=== PATIENT | male | born 1965 | race Caucasian/White ===

== ENCOUNTER → 2016-10-20 | Outpatient (CLI) | payer BC, OTHER ==
[~2016-10-20] MED LIST: CYCL10TA6 PO
== END | disposition home or self-care (01) ==
LOC: C.RDSM 16:13
PROVIDERS: ATTEND Physical Medicine & Rehabilitation Sports Medicine
DX: M25.521 Pain in right elbow (principal)

== ENCOUNTER → 2016-10-24 | Outpatient (CLI) | payer OTHER, BC ==
--- NOTE | 2016-10-24 08:57 | DIAGNOSTIC IMAGING REPORT ---
RIGHT ELBOW MRI HISTORY: Right elbow pain. RT ELBOW POSSIBLE DISTAL BICEP TEAR Right TECHNIQUE: Multiplanar multisequence MRI of the right elbow was performed without the use of contrast. COMPARISON STUDY: Right elbow 10/18/2016. FINDINGS: There is fluid surrounding the distal biceps tendon. There is minimal increased signal within the distal biceps tendon at the attachment. No evidence for full-thickness tear. Mild edema at the antecubital fossa. The triceps tendon is intact. No significant joint effusion. No fracture or dislocation. Cartilage spaces are maintained for age. The ulnar and radial collateral ligaments appear intact. Common flexor and common extensor tendons are normal in course, caliber, and signal intensity. The ulnar nerve is within normal limits. IMPRESSION: 1. Edema surrounding the distal biceps tendon. There is also minimal increased signal within the distal biceps tendon near the attachment suggestive of a low-grade partial tear/tendinopathy. No evidence for full-thickness tear. 2. No fracture or dislocation within the elbow. Electronically signed by: Lucas Gar M.D. 10/24/2016 8:56 AM Dictated Date/Time: 10/24/2016 8:50 AM
== END | disposition home or self-care (01) ==
LOC: C.MRI 07:59
PROVIDERS: ATTEND Physical Medicine & Rehabilitation Sports Medicine
DX: M25.521 Pain in right elbow (principal); R60.0 Localized edema

== ENCOUNTER → 2017-02-21 | Outpatient (CLI) | payer OTHER, BC ==
--- NOTE | 2017-02-21 09:30 | DIAGNOSTIC IMAGING REPORT ---
MRI OF THE RIGHT ELBOW NO CONTRAST CLINICAL HISTORY: S46.111A right elbow pain status post lifting injury. Possible biceps tear. Patient not improving on physical therapy. COMPARISON STUDY: MRI dated 10/24/2016 FINDINGS: Imaging was performed the sagittal, coronal, and axial planes. There are no areas of pathologic marrow edema. The ulnar collateral ligament appears intact. There is minor thickening of the medial collateral ligament. This is felt to be chronic. There is no evidence of pathologic intramuscular edema. There is slight indistinctness in the region of the biceps tendon insertion with near complete interval resolution of the previously described surrounding edema. The findings are consistent with a healing partial tear with residual tendinopathy IMPRESSION: 1. Interval resolution of the edema surrounding the distal biceps tendon 2. Indistinctness and increased signal within the distal biceps tendon near its insertion. 3. The findings likely represent the sequela of a prior partial tear with a residual insertional tendinopathy Electronically signed by: Donaldo Sanchez M.D. 02/21/2017 9:29 AM Dictated Date/Time: 02/21/2017 9:21 AM
== END | disposition home or self-care (01) ==
LOC: C.MRIBC 08:12
PROVIDERS: ATTEND Physical Medicine & Rehabilitation Sports Medicine
DX: S46.111A Strain of muscle, fascia and tendon of long head of biceps, right arm, initial encounter (principal); X58.XXXA Exposure to other specified factors, initial encounter